=== PATIENT | female | born 1985 | race Asian ===

== ENCOUNTER 2017-10-28 19:41 | Emergency (ER) | payer OTHER ==
[~2017-10-28] VITALS: Ht 157 cm; Wt 48.0 kg
[2017-10-28 19:49] VITALS: BP 117/72; PULSE 75; TEMP 97.1
== END 2017-10-28 20:52 | disposition home or self-care (01) ==
LOC: COL.ER 19:41
DX: S09.90XA Unspecified injury of head, initial encounter (principal); V43.62XA Car passenger injured in collision with other type car in traffic accident, initial encounter